=== PATIENT | female | born 1960 | race Two or more races ===

== ENCOUNTER 2017-06-23 11:00 | Emergency (ER) | payer MEDICAID ==
[~2017-06-23] VITALS: Ht 157.5 cm; Wt 62.4 kg
[2017-06-23 11:17] VITALS: BP 176/98
== END 2017-06-23 12:38 | disposition home or self-care (01) ==
LOC: ED 12:32
DX: B86 Scabies (principal); B85.0 Pediculosis due to Pediculus humanus capitis; I10 Essential (primary) hypertension; E78.5 Hyperlipidemia, unspecified; Z88.0 Allergy status to penicillin; F12.10 Cannabis abuse, uncomplicated; Z88.1 Allergy status to other antibiotic agents
CPT/HCPCS: 99283

== ENCOUNTER 2018-07-07 08:45 | Emergency (ER) | payer MEDICAID, OTHER ==
[~2018-07-07] VITALS: Ht 160 cm; Wt 68.0 kg
[2018-07-07 08:57] VITALS: BP 147/82
== END 2018-07-07 10:02 | disposition home or self-care (01) ==
LOC: ED 09:45
DX: B85.0 Pediculosis due to Pediculus humanus capitis (principal); I10 Essential (primary) hypertension; E78.5 Hyperlipidemia, unspecified; Z59.0 Homelessness
CPT/HCPCS: 99283

== ENCOUNTER 2019-03-22 09:13 | Emergency (ER) | payer MEDICAID ==
[~2019-03-22] VITALS: Ht 157.5 cm; Wt 62.0 kg
[2019-03-22 09:34] VITALS: BP 135/70
--- NOTE | 2019-03-22 09:51 | NUR ---
LESIONS ALL OVER BODY THAT STARTED DEVELOPING FRIDAY
== END 2019-03-22 10:59 | disposition home or self-care (01) ==
LOC: ED 10:52
DX: R21 Rash and other nonspecific skin eruption (principal); I10 Essential (primary) hypertension
CPT/HCPCS: 99283

== ENCOUNTER 2019-09-10 21:18 | Emergency (ER) | payer MEDICAID ==
[~2019-09-10] VITALS: Ht 157.5 cm; Wt 72.9 kg
[2019-09-10 21:29] VITALS: BP 170/74
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
== END 2019-09-10 23:40 | disposition home or self-care (01) ==
LOC: ED 23:34
DX: S80.01XA Contusion of right knee, initial encounter (principal); J20.8 Acute bronchitis due to other specified organisms; E78.5 Hyperlipidemia, unspecified; I10 Essential (primary) hypertension; F17.210 Nicotine dependence, cigarettes, uncomplicated; X58.XXXA Exposure to other specified factors, initial encounter; Y93.89 Activity, other specified; Y92.410 Unspecified street and highway as the place of occurrence of the external cause; Y99.8 Other external cause status
CPT/HCPCS: 71045; 99283

== ENCOUNTER 2020-02-21 21:32 | Emergency (ER) | payer MEDICAID ==
[~2020-02-21] VITALS: Ht 157.5 cm; Wt 66.8 kg
[2020-02-21 21:35] VITALS: BP 167/91
== END 2020-02-21 23:15 | disposition home or self-care (01) ==
LOC: ED 22:02
DX: B85.0 Pediculosis due to Pediculus humanus capitis (principal); Z72.9 Problem related to lifestyle, unspecified; E78.5 Hyperlipidemia, unspecified; I10 Essential (primary) hypertension; J43.9 Emphysema, unspecified
CPT/HCPCS: 99282

== ENCOUNTER 2021-03-25 08:40 | Emergency (ER) | payer MEDICAID ==
[~2021-03-25] VITALS: Ht 157.5 cm; Wt 62.0 kg
--- NOTE | 2021-03-25 08:41 | NUR ---
Pt brought in by [facility] from [facility] term with chief complaint of sob/cough 2-3 days, and skin infections nder bilat breasts.
--- NOTE | 2021-03-25 09:21 | NUR ---
xr at bedside
[2021-03-25] MEDS ORDERED: NYSTATIN CRM 15GM TP SCH (09:30)
--- NOTE | 2021-03-25 10:07 | NUR ---
topical nystatin cream applied per order. pt resting in bed, a&o, resps even and unlabored, vss, nadn.
[2021-03-25 10:09] VITALS: BP 141/68
--- NOTE | 2021-03-25 11:14 | NUR ---
pt educated on discharge and follow-up, verbalized understanding. pt a&o, resps even and unlabored, vss, nadn. ambulatory to discharge with steady gait.
== END 2021-03-25 11:24 | disposition home or self-care (01) ==
LOC: ED 09:11
DX: B37.89 Other sites of candidiasis (principal); R05 Cough; I10 Essential (primary) hypertension; E78.5 Hyperlipidemia, unspecified; F17.210 Nicotine dependence, cigarettes, uncomplicated
CPT/HCPCS: 71045; 93005; 99406

== ENCOUNTER 2021-03-27 13:20 | Emergency (ER) | payer MEDICAID ==
[~2021-03-27] VITALS: Ht 157.5 cm; Wt 61.0 kg
[2021-03-27] MEDS ORDERED: ONDANSETRON ODT 4 MG PO ONE (14:00)
[2021-03-27] MEDS ORDERED: ONDANSETRON ODT 4 MG ONE (15:43)
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
[2021-03-27 17:32] VITALS: BP 134/79
--- NOTE | 2021-03-27 18:01 | NUR ---
Patient given discharge instructions and they have confirmed that they understand the instructions. Patient ambulatory with walker and with steady gait. No questions at time of discharge.
== END 2021-03-27 18:03 | disposition home or self-care (01) ==
LOC: ED 13:25
DX: S09.90XA Unspecified injury of head, initial encounter (principal); I10 Essential (primary) hypertension; W18.30XA Fall on same level, unspecified, initial encounter; Y93.89 Activity, other specified; Y92.410 Unspecified street and highway as the place of occurrence of the external cause; Y99.8 Other external cause status
CPT/HCPCS: 70450; 99284; Q0162

== ENCOUNTER 2021-05-29 08:39 | Emergency (ER) | payer MEDICAID ==
[~2021-05-29] VITALS: Ht 157.5 cm; Wt 62.8 kg
[2021-05-29 09:17] VITALS: BP 138/76
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
[2021-05-29] MEDS ORDERED: CEFTRIAXONE 1,000 MG IM ONE (10:00)
[2021-05-29] MEDS ORDERED: CEFTRIAXONE 1,000 MG ONE (10:10)
--- NOTE | 2021-05-29 10:16 | NUR ---
lab at [facility] to obatin both sets of blood culutres
[2021-05-29 10:32] LABS: BASOPHILS % (AUTO) 0 % (0-1); EOSINOPHILS % (AUTO) 4 % (1-7); LYMPHOCYTES % (AUTO) 7 % (22-44); MEAN CORPUSCULAR HEMOGLOBIN 29.5 pg (27.0-34.8); MEAN CORPUSCULAR HGB CONC 33.7 g/dL (32.4-35.8); MEAN PLATELET VOLUME 8.4 fL (7.4-10.4); MONOCYTES % (AUTO) 6 % (2-9); NEUTROPHILS % (AUTO) 83 % (42-75); PLATELET COUNT 246 x10^3/uL (130-400); RED BLOOD COUNT 4.13 x10^6/uL (3.82-5.3); RED CELL DISTRIBUTION WIDTH 13.6 % (9.6-15.2)
[2021-05-29 10:46] LABS: ANION GAP 11 mmol/L (5-15); CALCIUM 9.8 mg/dL (8.5-10.1); CHLORIDE 101 mmol/L (98-107); CREATININE 1.38 mg/dL (0.55-1.02)
--- NOTE | 2021-05-29 11:40 | NUR ---
patient escorting to bathroom via wheelchair
--- NOTE | 2021-05-29 12:03 | NUR ---
PATIENT INSISTING ON FOOD. PROVIDED PATIENT WITH SNACKS FROM NUTRITION ROOM
== END 2021-05-29 12:52 | disposition home or self-care (01) ==
LOC: ED 09:38
DX: L03.116 Cellulitis of left lower limb (principal); I10 Essential (primary) hypertension; E78.5 Hyperlipidemia, unspecified; F17.200 Nicotine dependence, unspecified, uncomplicated; J43.9 Emphysema, unspecified
CPT/HCPCS: 36415; 80048; 82040; 83605; 84145; 85025; 87040; 96372; 99283; J0696

== ENCOUNTER 2021-06-10 12:38 | Inpatient (IN) | payer MEDICAID ==
[~2021-06-10] VITALS: Ht 157.5 cm; Wt 63.1 kg
[2021-06-10] MEDS ORDERED: SODIUM CHLORIDE FLUSH 10ML SYR IVF ONE (13:00)
[2021-06-10] MEDS ORDERED: FAMOTIDINE 20 MG/2 ML IVPush ONE (13:00)
[2021-06-10] MEDS ORDERED: ONDANSETRON 2MG/ML, 2ML IVPush ONE (13:00)
[2021-06-10] MEDS ORDERED: MAALOX/HYOSCYAMINE/LIDOCAINE 45 ML BTL PO ONE (13:00)
[2021-06-10] MEDS ORDERED: SODIUM CHLORIDE 0.9% 1,000ML IVBOLUS ONE (13:00)
[2021-06-10] MEDS ORDERED: PLEASE ENTER HEIGHT AND WEIGHT MC SCH (13:00)
[2021-06-10] MEDS ORDERED: FAMOTIDINE 20 MG/2 ML ONE (13:25)
[2021-06-10] MEDS ORDERED: MAALOX/HYOSCYAMINE/LIDOCAINE 45 ML BTL ONE (13:25)
[2021-06-10] MEDS ORDERED: ONDANSETRON 2MG/ML, 2ML ONE (13:25)
[2021-06-10 13:49] LABS: BASOPHILS % (AUTO) 1 % (0-1); EOSINOPHILS % (AUTO) 0 % (1-7); LYMPHOCYTES % (AUTO) 13 % (22-44); MEAN CORPUSCULAR HEMOGLOBIN 29.3 pg (27.0-34.8); MEAN CORPUSCULAR HGB CONC 33.8 g/dL (32.4-35.8); MEAN PLATELET VOLUME 9.7 fL (7.4-10.4); MONOCYTES % (AUTO) 10 % (2-9); NEUTROPHILS % (AUTO) 76 % (42-75); PLATELET COUNT 179 x10^3/uL (130-400); RED CELL DISTRIBUTION WIDTH 14.4 % (9.6-15.2)
--- NOTE | 2021-06-10 13:49 | NUR ---
FIRST CONTACT WITH PATIENT, MEDICATED PER eMAR, NADN, CONNECTED TO MONITOR, VSS, CALL LIGHT WITHIN REACH.
--- NOTE | 2021-06-10 13:55 | NUR ---
PATIENT ASSISTED TO [facility] [place].
[2021-06-10 13:57] LABS: ALANINE AMINOTRANSFERASE 33 U/L (12-78); ALBUMIN 2.7 g/dL (3.4-5.0); ANION GAP 13 mmol/L (5-15); CALCIUM 8.9 mg/dL (8.5-10.1); CHLORIDE 99 mmol/L (98-107)
[2021-06-10 14:00] LABS: ALKALINE PHOSPHATASE 92 U/L (45-117); BILIRUBIN,TOTAL 0.4 mg/dL (0.2-1.0); CREATININE 2.14 mg/dL (0.55-1.02); TOTAL PROTEIN 9.5 g/dL (6.4-8.2)
--- NOTE | 2021-06-10 14:10 | NUR ---
PATIENT ASSISTED BACK TO [facility], PATIENT HAD BM MIXED WITH URINE. UNABLE TO SEND SAMPLE AT THIS TIME. ERMD AT BEDSIDE TO DISCUSS POC. PATIENT TO BE ADMITTED.
[2021-06-10] MEDS ORDERED: POTASSIUM CHLORIDE 20 MEQ in SODIUM CHLORIDE 0.9% 1,000 ML IV ONE (14:30)
[2021-06-10] MEDS ORDERED: SODIUM CHLORIDE FLUSH 10ML SYR IVF PRN (14:30)
--- NOTE | 2021-06-10 14:48 | NUR ---
ATTEMPTED TO CALL REPORT.
--- NOTE | 2021-06-10 15:12 | NUR ---
REPORT TO RENITA MENESES FOR TRANSFER OF PATIENT CARE.
[2021-06-10] MEDS: SODIUM CHLORIDE 0.9% 1,000 ML IV SCH ×2 (15:30→22:10)
[2021-06-10] MEDS ORDERED: LABETALOL 5MG/ML, 20ML IVPush PRN (15:30)
[2021-06-10] MEDS ORDERED: ONDANSETRON 2MG/ML, 2ML IVPush PRN (15:30)
[2021-06-10] MEDS ORDERED: MORPHINE SULFATE 4 MG/ML, 1ML IVPush PRN (15:30)
--- NOTE | 2021-06-10 15:31 | NUR ---
PATIENT TRANSFERRED IN STABLE CONDITION VIA GURNEY WITH ARMATURE CONNECTOR TO FLOOR. ALL PATIENT BELONGINGS TAKEN TO FLOOR WITH PATIENT.
[2021-06-10 15:46] VITALS: BP 112/71
[2021-06-10] MEDS: METRONIDAZOLE PMX 500MG/100ML 100 ML IV SCH (16:00)
[2021-06-10 18:18] VITALS: BP 118/71
[2021-06-10] MEDS: CEFTRIAXONE 1,000 MG in DEXTROSE 5% 50 ML IVPB SCH (18:23)
[2021-06-10] MEDS: HEPARIN 5,000 UNITS/ML, 1ML SQ SCH (19:48)
[2021-06-10 21:06] LABS: MICROSCOPIC INDICATED
[2021-06-10 21:27] LABS: CLOSTRIDIUM DIFFICILE ANTIGEN NEGATIVE; CLOSTRIDIUM DIFFICILE TOXIN NEGATIVE (Negative)
[2021-06-10] MEDS ORDERED: OXYB5TAB10 PO (22:02)
[2021-06-10] MEDS ORDERED: METO50TA82 PO (22:02)
[2021-06-10] MEDS ORDERED: LORA-247 PO (22:02)
[2021-06-10] MEDS ORDERED: FLUT9.9S NS (22:02)
[2021-06-10] MEDS ORDERED: HYDR25TA6 PO (22:02)
[2021-06-10] MEDS ORDERED: LOSA50TA14 PO (22:02)
[2021-06-10] MEDS ORDERED: ATOR40TA78 PO (22:02)
[2021-06-10] MEDS ORDERED: BUDE10.26 INH (22:02)
[2021-06-11 00:45] VITALS: BP 110/66
[2021-06-11] MEDS: HEPARIN 5,000 UNITS/ML, 1ML SQ SCH ×3 (04:01→20:53)
[2021-06-11] MEDS: SODIUM CHLORIDE 0.9% 1,000 ML IV SCH ×3 (04:02→17:19)
[2021-06-11 06:48] LABS: MEAN CORPUSCULAR HGB CONC 33.3 g/dL (32.4-35.8); MEAN PLATELET VOLUME 9.8 fL (7.4-10.4); PLATELET COUNT 96 x10^3/uL (130-400); RED CELL DISTRIBUTION WIDTH 13.7 % (9.6-15.2)
[2021-06-11 06:56] VITALS: BP 113/62
[2021-06-11 06:58] LABS: ALBUMIN 1.8 g/dL (3.4-5.0)
[2021-06-11 07:03] LABS: ALANINE AMINOTRANSFERASE 25 U/L (12-78); ALKALINE PHOSPHATASE 64 U/L (45-117); BILIRUBIN,TOTAL 0.3 mg/dL (0.2-1.0); CREATININE 1.52 mg/dL (0.55-1.02); TOTAL PROTEIN 6.7 g/dL (6.4-8.2)
[2021-06-11 07:24] LABS: ANION GAP 11 mmol/L (5-15); CHLORIDE 110 mmol/L (98-107)
[2021-06-11 07:25] LABS: CALCIUM 7.5 mg/dL (8.5-10.1)
[2021-06-11] MEDS: ACETAMINOPHEN 325 MG TABLET PO PRN (07:26)
[2021-06-11] MEDS: METRONIDAZOLE PMX 500MG/100ML 100 ML IV SCH ×3 (07:26→17:19)
[2021-06-11 07:39] LABS: BAND#(MANUAL) 0.76 x10^3/uL; BANDS%(MANUAL) 21 % (0-7); BASOS#(MANUAL) 0.04 x10^3/uL (0-0.1); BASOS% (MANUAL) 1 % (0-1); LYMPH#(MANUAL) 0.47 x10^3/uL (1-3.4); LYMPHS% (MANUAL) 13 % (22-44); MONOS#(MANUAL) 0.11 x10^3/uL (0.3-2.7); MONOS% (MANUAL) 3 % (2-9); SEG#(MANUAL) 2.23 x10^3/uL (1.8-6.8); SEGS% (MANUAL) 62 % (42-75)
[2021-06-11 07:40] LABS: <PLATELET ESTIMATE> DECREASED; <RBC MORPHOLOGY> NORMAL; LARGE PLATELETS 1+
[2021-06-11 12:51] VITALS: BP 148/72
[2021-06-11] MEDS ORDERED: LOPERAMIDE 2 MG CAPSULE PO ONE (14:00)
[2021-06-11] MEDS: POTASSIUM CHLORIDE 20 MEQ TAB.ER.PRT PO SCH ×2 (16:36→20:53)
[2021-06-11] MEDS: LACTOBACILLUS CHEW TABLET PO SCH ×2 (16:36→20:53)
[2021-06-11] MEDS: CEFTRIAXONE 1,000 MG in DEXTROSE 5% 50 ML IVPB SCH (16:36)
[2021-06-11 20:00] VITALS: BP 144/70
[2021-06-11] MEDS: LOPERAMIDE 2 MG CAPSULE PO PRN (20:53)
[2021-06-11] MEDS: DOXYCYCLINE 100MG TABLET PO SCH (20:53)
[2021-06-11 21:00] VITALS: BP 145/80
[2021-06-12] MEDS: METRONIDAZOLE PMX 500MG/100ML 100 ML IV SCH ×3 (00:51→18:35)
[2021-06-12 00:53] VITALS: BP 116/64
[2021-06-12] MEDS: ACETAMINOPHEN 325 MG TABLET PO PRN ×2 (00:58→05:37)
[2021-06-12] MEDS: LOPERAMIDE 2 MG CAPSULE PO PRN (05:37)
[2021-06-12] MEDS: HEPARIN 5,000 UNITS/ML, 1ML SQ SCH ×3 (05:37→21:06)
[2021-06-12 05:50] LABS: BASOPHILS % (AUTO) 0 % (0-1); EOSINOPHILS % (AUTO) 1 % (1-7); LYMPHOCYTES % (AUTO) 19 % (22-44); MEAN CORPUSCULAR HEMOGLOBIN 29.4 pg (27.0-34.8); MEAN CORPUSCULAR HGB CONC 33.7 g/dL (32.4-35.8); MEAN PLATELET VOLUME 9.7 fL (7.4-10.4); MONOCYTES % (AUTO) 5 % (2-9); NEUTROPHILS % (AUTO) 76 % (42-75); PLATELET COUNT 92 x10^3/uL (130-400); RED BLOOD COUNT 3.59 x10^6/uL (3.82-5.3); RED CELL DISTRIBUTION WIDTH 13.8 % (9.6-15.2)
[2021-06-12 06:00] LABS: ANION GAP 8 mmol/L (5-15); CALCIUM 7.2 mg/dL (8.5-10.1); CHLORIDE 113 mmol/L (98-107); CREATININE 1.59 mg/dL (0.55-1.02)
[2021-06-12 06:22] LABS: D-DIMER 3.68 ug/mlFEU (0.00-0.52)
[2021-06-12] MEDS: LACTOBACILLUS CHEW TABLET PO SCH ×3 (08:19→21:06)
[2021-06-12] MEDS: CHOLESTYRAMINE LIGHT 4GM PACKET PO SCH (08:19)
[2021-06-12] MEDS: POTASSIUM CHLORIDE 20 MEQ TAB.ER.PRT PO SCH (08:19)
[2021-06-12 08:23] VITALS: BP 128/69
[2021-06-12] MEDS: DOXYCYCLINE 100MG TABLET PO SCH ×2 (09:39→21:06)
[2021-06-12 13:31] VITALS: BP 121/72
[2021-06-12] MEDS: CEFTRIAXONE 1,000 MG in DEXTROSE 5% 50 ML IVPB SCH (17:24)
[2021-06-12 19:48] VITALS: BP 144/77
[2021-06-13] MEDS: METRONIDAZOLE PMX 500MG/100ML 100 ML IV SCH ×3 (00:37→18:49)
[2021-06-13 01:23] VITALS: BP 137/80
[2021-06-13] MEDS: ACETAMINOPHEN 325 MG TABLET PO PRN (03:37)
[2021-06-13] MEDS: ASPIRIN 325 MG TABLET PO SCH (05:32)
[2021-06-13] MEDS: HEPARIN 5,000 UNITS/ML, 1ML SQ SCH ×3 (05:32→21:14)
[2021-06-13 06:12] LABS: BASOPHILS % (AUTO) 0 % (0-1); EOSINOPHILS % (AUTO) 1 % (1-7); LYMPHOCYTES % (AUTO) 17 % (22-44); MEAN CORPUSCULAR HEMOGLOBIN 29.4 pg (27.0-34.8); MEAN CORPUSCULAR HGB CONC 33.4 g/dL (32.4-35.8); MEAN PLATELET VOLUME 9.3 fL (7.4-10.4); MONOCYTES % (AUTO) 7 % (2-9); NEUTROPHILS % (AUTO) 74 % (42-75); PLATELET COUNT 95 x10^3/uL (130-400); RED BLOOD COUNT 3.67 x10^6/uL (3.82-5.3); RED CELL DISTRIBUTION WIDTH 13.9 % (9.6-15.2)
[2021-06-13 06:24] LABS: D-DIMER 1.54 ug/mlFEU (0.00-0.52)
[2021-06-13 06:29] LABS: ANION GAP 8 mmol/L (5-15); CALCIUM 7.4 mg/dL (8.5-10.1); CHLORIDE 115 mmol/L (98-107)
[2021-06-13 06:32] LABS: CREATININE 1.12 mg/dL (0.55-1.02)
[2021-06-13] MEDS ORDERED: POTASSIUM CHLORIDE 20 MEQ TAB.ER.PRT PO ONE ×2 (07:30→16:30)
[2021-06-13 08:18] VITALS: BP 122/73
[2021-06-13] MEDS: LACTOBACILLUS CHEW TABLET PO SCH ×3 (09:44→21:14)
[2021-06-13] MEDS: CHOLESTYRAMINE LIGHT 4GM PACKET PO SCH (11:55)
[2021-06-13 14:09] VITALS: BP 118/72
[2021-06-13] MEDS: CEFTRIAXONE 1,000 MG in DEXTROSE 5% 50 ML IVPB SCH (17:19)
[2021-06-13 19:28] VITALS: BP 123/75
[2021-06-13] MEDS: LACTATED RINGERS 1,000 ML IV SCH (21:14)
[2021-06-14 01:00] VITALS: BP 115/68
[2021-06-14] MEDS: METRONIDAZOLE PMX 500MG/100ML 100 ML IV SCH ×3 (01:07→18:52)
[2021-06-14] MEDS: ASPIRIN 325 MG TABLET PO SCH (05:09)
[2021-06-14] MEDS: HEPARIN 5,000 UNITS/ML, 1ML SQ SCH ×3 (05:09→20:51)
[2021-06-14] MEDS: LACTATED RINGERS 1,000 ML IV SCH ×2 (05:09→14:56)
[2021-06-14 07:12] LABS: ANION GAP 7 mmol/L (5-15); CALCIUM 7.3 mg/dL (8.5-10.1); CHLORIDE 119 mmol/L (98-107); CREATININE 0.81 mg/dL (0.55-1.02)
[2021-06-14 07:39] VITALS: BP 149/71
[2021-06-14] MEDS: LACTOBACILLUS CHEW TABLET PO SCH ×3 (10:36→20:50)
[2021-06-14 12:00] VITALS: BP 135/73
[2021-06-14] MEDS: CHOLESTYRAMINE LIGHT 4GM PACKET PO SCH (12:33)
[2021-06-14] MEDS ORDERED: MAGNESIUM SULFATE PMX 2GM/50ML 50 ML IV ONE (14:30)
[2021-06-14] MEDS: CEFTRIAXONE 1,000 MG in DEXTROSE 5% 50 ML IVPB SCH (17:26)
[2021-06-14 19:45] VITALS: BP 153/83
[2021-06-15 00:04] VITALS: BP 159/83
[2021-06-15] MEDS: METRONIDAZOLE PMX 500MG/100ML 100 ML IV SCH ×2 (02:05→10:43)
[2021-06-15] MEDS: LACTATED RINGERS 1,000 ML IV SCH (05:34)
[2021-06-15] MEDS: HEPARIN 5,000 UNITS/ML, 1ML SQ SCH ×3 (05:34→21:17)
[2021-06-15] MEDS: ASPIRIN 325 MG TABLET PO SCH (05:34)
[2021-06-15 06:18] LABS: ANION GAP 10 mmol/L (5-15); CALCIUM 7.1 mg/dL (8.5-10.1); CHLORIDE 113 mmol/L (98-107); CREATININE 0.47 mg/dL (0.55-1.02)
[2021-06-15] MEDS ORDERED: MAGNESIUM SULFATE PMX 2GM/50ML 50 ML IV ONE (07:00)
[2021-06-15 08:34] VITALS: BP 161/78
[2021-06-15] MEDS: LACTOBACILLUS CHEW TABLET PO SCH ×3 (10:39→21:17)
[2021-06-15 12:10] VITALS: BP 171/79
[2021-06-15] MEDS ORDERED: metroNIDAZOLE 500 MG TABLET PO SCH (12:30)
[2021-06-15] MEDS: CHOLESTYRAMINE LIGHT 4GM PACKET PO SCH (13:06)
[2021-06-15 19:34] VITALS: BP 179/94
[2021-06-16 00:27] VITALS: BP 150/82
[2021-06-16] MEDS: HEPARIN 5,000 UNITS/ML, 1ML SQ SCH ×3 (05:51→19:41)
[2021-06-16 08:03] LABS: ANION GAP 5 mmol/L (5-15); CALCIUM 8.1 mg/dL (8.5-10.1); CHLORIDE 116 mmol/L (98-107); CREATININE 0.69 mg/dL (0.55-1.02)
[2021-06-16] MEDS: CHOLESTYRAMINE LIGHT 4GM PACKET PO SCH (08:06)
[2021-06-16] MEDS: LACTOBACILLUS CHEW TABLET PO SCH ×3 (08:06→19:41)
[2021-06-16 08:13] VITALS: BP 153/90
[2021-06-16] MEDS ORDERED: POTASSIUM CHLORIDE 20 MEQ TAB.ER.PRT PO ONE (10:00)
[2021-06-16] MEDS ORDERED: MAGNESIUM SULFATE PMX 2GM/50ML 50 ML IV ONE (10:00)
[2021-06-16] MEDS ORDERED: LOPERAMIDE 2 MG CAPSULE PO PRN (11:00)
[2021-06-16 14:00] VITALS: BP 165/83
[2021-06-16] MEDS ORDERED: POTASSIUM CHLORIDE 20 MEQ TAB.ER.PRT ONE (15:07)
[2021-06-16 19:30] VITALS: BP 158/89
[2021-06-17 02:50] VITALS: BP 166/97
[2021-06-17] MEDS: HEPARIN 5,000 UNITS/ML, 1ML SQ SCH ×3 (05:47→21:59)
[2021-06-17 07:21] LABS: CHLORIDE 114 mmol/L (98-107)
[2021-06-17 07:30] LABS: ANION GAP 6 mmol/L (5-15); CALCIUM 8.2 mg/dL (8.5-10.1); CREATININE 0.65 mg/dL (0.55-1.02)
[2021-06-17 07:48] VITALS: BP 164/89
[2021-06-17] MEDS: LACTOBACILLUS CHEW TABLET PO SCH ×3 (08:36→21:59)
[2021-06-17] MEDS ORDERED: MAGNESIUM SULFATE PMX 2GM/50ML 50 ML IV ONE (10:00)
[2021-06-17] MEDS: CHOLESTYRAMINE LIGHT 4GM PACKET PO SCH (10:47)
[2021-06-17 12:24] VITALS: BP 150/86
[2021-06-17] MEDS: LISINOPRIL 10 MG TABLET PO SCH (14:26)
[2021-06-17 19:11] VITALS: BP 168/89
[2021-06-18 01:19] VITALS: BP 151/78
[2021-06-18] MEDS: HEPARIN 5,000 UNITS/ML, 1ML SQ SCH ×3 (05:50→21:28)
[2021-06-18 06:52] VITALS: BP 140/56
[2021-06-18 07:11] VITALS: BP 140/78
[2021-06-18] MEDS: CHOLESTYRAMINE LIGHT 4GM PACKET PO SCH (11:38)
[2021-06-18] MEDS: LACTOBACILLUS CHEW TABLET PO SCH ×3 (11:39→21:28)
[2021-06-18] MEDS: LISINOPRIL 10 MG TABLET PO SCH (11:39)
[2021-06-18 12:17] VITALS: BP 163/95
[2021-06-18 13:58] VITALS: BP 158/84
[2021-06-18 19:06] VITALS: BP 168/90
[2021-06-19 00:32] VITALS: BP 164/92
[2021-06-19] MEDS: HEPARIN 5,000 UNITS/ML, 1ML SQ SCH ×3 (05:52→21:34)
[2021-06-19 06:23] VITALS: BP 181/102
[2021-06-19] MEDS: LISINOPRIL 20 MG TABLET PO SCH (11:20)
[2021-06-19] MEDS: CHOLESTYRAMINE LIGHT 4GM PACKET PO SCH (11:20)
[2021-06-19] MEDS: LACTOBACILLUS CHEW TABLET PO SCH ×3 (11:20→21:34)
[2021-06-19 11:23] VITALS: BP 154/88
[2021-06-19 13:36] VITALS: BP 167/105
[2021-06-19 18:42] VITALS: BP 130/85
[2021-06-20 04:07] VITALS: BP 142/78
[2021-06-20] MEDS: HEPARIN 5,000 UNITS/ML, 1ML SQ SCH ×3 (05:44→21:00)
[2021-06-20 07:58] VITALS: BP 163/82
[2021-06-20] MEDS: CHOLESTYRAMINE LIGHT 4GM PACKET PO SCH (11:20)
[2021-06-20] MEDS: LACTOBACILLUS CHEW TABLET PO SCH ×3 (11:20→20:59)
[2021-06-20] MEDS: LISINOPRIL 20 MG TABLET PO SCH (11:20)
[2021-06-20 12:07] VITALS: BP 160/96
[2021-06-20 19:12] VITALS: BP 159/81
[2021-06-20] MEDS: ACETAMINOPHEN 325 MG TABLET PO PRN (21:10)
[2021-06-21 00:19] VITALS: BP 171/96
[2021-06-21 01:38] VITALS: BP 144/87
[2021-06-21] MEDS: HEPARIN 5,000 UNITS/ML, 1ML SQ SCH ×3 (06:08→21:30)
[2021-06-21] MEDS: LACTOBACILLUS CHEW TABLET PO SCH ×3 (08:56→21:29)
[2021-06-21] MEDS: LISINOPRIL 20 MG TABLET PO SCH (08:58)
[2021-06-21] MEDS: CHOLESTYRAMINE LIGHT 4GM PACKET PO SCH (08:58)
[2021-06-21 08:59] VITALS: BP 169/95
[2021-06-21 12:10] VITALS: BP 166/83
[2021-06-21] MEDS: ACETAMINOPHEN 325 MG TABLET PO PRN ×2 (14:33→21:29)
[2021-06-21 20:18] VITALS: BP 161/83
[2021-06-22 01:32] VITALS: BP 132/80
[2021-06-22] MEDS: ACETAMINOPHEN 325 MG TABLET PO PRN (05:52)
[2021-06-22] MEDS: HEPARIN 5,000 UNITS/ML, 1ML SQ SCH ×3 (05:52→21:29)
[2021-06-22 07:32] VITALS: BP 152/91
[2021-06-22] MEDS: LISINOPRIL 20 MG TABLET PO SCH (08:17)
[2021-06-22] MEDS: LACTOBACILLUS CHEW TABLET PO SCH ×3 (08:17→21:30)
[2021-06-22] MEDS: CHOLESTYRAMINE LIGHT 4GM PACKET PO SCH (08:17)
[2021-06-22 13:11] VITALS: BP 133/80
[2021-06-22 19:17] VITALS: BP 145/86
[2021-06-23 00:18] VITALS: BP 118/76
[2021-06-23] MEDS: HEPARIN 5,000 UNITS/ML, 1ML SQ SCH ×3 (05:13→21:49)
[2021-06-23] MEDS: LACTOBACILLUS CHEW TABLET PO SCH (07:58)
[2021-06-23] MEDS: CHOLESTYRAMINE LIGHT 4GM PACKET PO SCH (07:59)
[2021-06-23] MEDS: LISINOPRIL 20 MG TABLET PO SCH (07:59)
[2021-06-23 08:01] VITALS: BP 131/78
[2021-06-23 14:30] VITALS: BP 151/73
[2021-06-23 20:18] VITALS: BP 169/91
[2021-06-24 01:18] VITALS: BP 127/77
[2021-06-24] MEDS: HEPARIN 5,000 UNITS/ML, 1ML SQ SCH ×3 (05:07→21:18)
[2021-06-24 10:07] VITALS: BP 150/76
[2021-06-24] MEDS: LISINOPRIL 20 MG TABLET PO SCH (10:09)
[2021-06-24 12:30] VITALS: BP 149/89
[2021-06-24 19:35] VITALS: BP_SYST 117; BP_SYST 175; BP_DIAS 81; BP_DIAS 94
[2021-06-25 01:48] VITALS: BP 109/65
[2021-06-25] MEDS: HEPARIN 5,000 UNITS/ML, 1ML SQ SCH (06:09)
[2021-06-25 09:59] VITALS: BP 156/84
[2021-06-25] MEDS: LISINOPRIL 20 MG TABLET PO SCH (10:04)
== END 2021-06-25 14:01 | disposition home or self-care (01) | DRG 177 ==
LOC: SUATTDRO 14:29 → ED 15:32 → 3N 15:38
PROVIDERS: ADMIT Internal Medicine; ATTEND Hospitalist
DX: U07.1 COVID-19 (principal); J12.82 Pneumonia due to coronavirus disease 2019; N17.0 Acute kidney failure with tubular necrosis; E87.1 Hypo-osmolality and hyponatremia; N39.0 Urinary tract infection, site not specified; E78.5 Hyperlipidemia, unspecified; E11.65 Type 2 diabetes mellitus with hyperglycemia; E83.42 Hypomagnesemia; E86.0 Dehydration; E87.5 Hyperkalemia; E87.6 Hypokalemia; E88.09 Other disorders of plasma-protein metabolism, not elsewhere classified; F12.90 Cannabis use, unspecified, uncomplicated; R74.01 Elevation of levels of liver transaminase levels; I10 Essential (primary) hypertension; K52.9 Noninfective gastroenteritis and colitis, unspecified; Z59.0 Homelessness; Z88.0 Allergy status to penicillin; Z88.2 Allergy status to sulfonamides; Z88.5 Allergy status to narcotic agent
CPT/HCPCS: 36415; 71045; 74021; 76770; 80048; 80053; 81001; 83036; 83690; 83735; 84100; 85025; 85379; 85384; 87046; 87086; 87324; 87427; 96361; 96374; 96375; G0378; J0696; J1644; J2405; U0005; J3475; J7030; J7120; U0003